=== PATIENT | female | born 1985 | race Caucasian/White ===

== ENCOUNTER 2016-08-20 04:24 | Inpatient (IN) | payer BC, OTHER ==
[2016-08-20 04:43] VITALS: BMI 28.3
[2016-08-20] MEDS ORDERED: SODIUM CHLORIDE 0.9% 1000 ML INFUS.BAG IV ONE (04:45)
[2016-08-20] MEDS ORDERED: ONDANSETRON 4 MG/2 ML VIAL IVPUSH ONE (04:46)
--- NOTE | 2016-08-20 04:47 | PDOC ---
*Physical Exam - Vital Signs Last Vital Signs Temp Pulse Resp BP Pulse Ox 98.9 F 97 H 20 160/108 100 08/20/16 04:39 08/20/16 04:39 08/20/16 04:39 08/20/16 04:39 08/20/16 04:39 ED Treatment Course - LABORATORY CBC & Chemistry Diagram: 08/20/16 04:52 08/20/16 06:09 Medical Decision Making - Medical Decision Making 08/20/16 04:46 agree with care from ERIKA Martinez *DC/Admit/Observation/Transfer Diagnosis at time of Disposition: Cholecystitis, Elevated liver enzymes - Discharge Dispostion Condition at time of disposition: Stable
[2016-08-20] MEDS ORDERED: FAMOTIDINE 20 MG/50 ML IVPB 50 ML IVPB ONE ×2 (04:56→04:59)
--- NOTE | 2016-08-20 05:09 | PDOC ---
History of Present Illness - General Chief Complaint: Pain Stated Complaint: ABD PAIN, SOB Time Seen by Provider: 08/20/16 04:34 - History of Present Illness Initial Comments: 08/20/16 05:00 CHIEF COMPLAINT: abdominal pain, chest tightness HISTORY OF PRESENT ILLNESS: 30 yo F with hx of asthma and HTN presents to ED with abdominal pain x 2 hours. Patient states she "was fine at midnight" but around 2:30 in the morning she had sudden onset sharp abdominal pain and began vomiting persistently. The pain is 10/10 and only relieved when she pushes down on her stomach. She denies any fever but states that she "feels really hot and sweaty." She ate a medium-cooked steak and potatoes tonight. She denies any urinary symptoms, diarrhea or rectal bleeding and states she had a normal bowel movement yesterday. Her LMP was . 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 Of note, patient states she was prescribed Diovan in the past for her HTN but has not been taking it recently. 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 Current smoker, 1/2 pack daily. Occasion alcohol use, "every once in a while." Denies illicit drug. SURGICAL HISTORY: Denies ALLERGIES: ibuprofen (fast heartbeat) REVIEW OF SYSTEMS General/Constitutional: "I feel really hot, and my whole body hurts like I have the flu." Denies weakness, weight change. HEENT: Denies change in vision. Denies ear pain or discharge. Denies sore throat. Cardiovascular: Denies chest pain or shortness of breath. Respiratory: Denies cough, wheezing, or hemoptysis. Gastrointestinal: Nausea, multiple episodes of vomiting in past 2 hours. Denies diarrhea or constipation. Denies rectal bleeding. Genitourinary: Denies dysuria, frequency, or change in urination. Musculoskeletal: Denies joint or muscle swelling or pain. Denies neck or back pain. Skin and breasts: Denies rash or easy bruising. Neurologic: Denies headache, vertigo, loss of consciousness, or loss of sensation. PHYSICAL EXAM General Appearance: Well-appearing, appropriately dressed. No apparent distress , no intoxication. HEENT: EOMI, PERRLA, normal ENT inspection, normal voice, TMs normal, pharynx normal. No conjunctival pallor. No photophobia, scleral icterus. Respiratory/Chest: Lungs CTAB. Cardiovascular: RRR. S1, S2. Gastrointestinal/Abdominal: Tenderness to epigastric region. No tenderness to McBurney's point. No tenderness to lower abdomen. Normal bowel sounds. Abdomen soft, non-distended. No tenderness or rebound tenderness. No organomegaly, pulsatile mass, guarding, hernia, hepatomegaly, splenomegaly. Musculoskeletal/Extremities: Normal inspection. FROM of all extremities, normal capillary refill. Pelvis Stable. No CVA tenderness. No tenderness to extremities, pedal edema, swelling, erythema or deformity. Integumentary: Appropriate color, dry, warm. No cyanosis, erythema, jaundice or rash Neurologic: nursery hand II-XII intact. Fully oriented, alert. Appropriate mood/affect. Motor strength 5/5. No appreciable EOM palsy, facial droop or sensory deficit. Past History - Past Medical History Allergies/Adverse Reactions: Allergies Allergy/AdvReac Type Severity Reaction Status Date / Time famotidine [From Pepcid] Allergy Rash Verified 08/20/16 12:00 ibuprofen Allergy Verified 08/20/16 04:57 ondansetron HCl Allergy Rash Verified 08/20/16 12:00 [From Zofran (as hydrochloride)] Home Medications: Ambulatory Orders Albuterol Sulfate Inhaler - [Ventolin Hfa Inhaler -] 1 - 2 inh PO QID PRN Cetirizine HCl [Zyrtec -] 10 mg PO DAILY 08/20/16 - Psycho/Social/Smoking Cessation Hx Suicidal Ideation: No Smoking History: Unknown if ever smoked Have you smoked in the past 12 months: No Information on smoking cessation initiated: No Hx Alcohol Use: No Drug/Substance Use Hx: No *Physical Exam - Vital Signs Last Vital Signs Temp Pulse Resp BP Pulse Ox 98.9 F 97 H 20 160/108 100 08/20/16 04:39 08/20/16 04:39 08/20/16 04:39 08/20/16 04:53 08/20/16 04:39 ED Treatment Course - LABORATORY CBC & Chemistry Diagram: 08/20/16 04:52 08/20/16 06:09 - RADIOLOGY Radiology Studies Ordered: Category Date Time Status CHEST X-RAY PORTABLE* [RAD] Stat Radiology 08/20/16 04:40 Ordered - Medications Given in the ED: ED Medications Discontinued Medications Generic Name Dose Route Start Last Admin Trade Name Mike PRN Reason Stop Dose Admin Ondansetron HCl 4 mg 08/20/16 04:46 08/20/16 04:54 Zofran Injection IVPUSH 08/20/16 04:47 4 mg ONCE ONE Administration Sodium Chloride 1,000 ml 08/20/16 04:45 08/20/16 04:53 Normal Saline - IV 08/20/16 04:46 1,000 ml ONCE ONE Administration Medical Decision Making - Medical Decision Making 08/20/16 05:44 30 yo F with hx of asthma and HTN presents to ED with abdominal pain x 2 hours. -CBC, CMP, lipase -Zofran 4 mg IV -Pepcid 20 mg IVPB Patient vomited once after administration of Zofran; continues to c/o of severe epigastric pain. -Abdomen US when ultrasound arrives in AM, r/o vijaya. -Will have patient start drinking contrast for abdomen and pelvis CT w/ contrast to r/o intraabdominal path if US negative Patient notes that she is itchy all over. -25mg Benadryl IVPB Labs: WBC 14.1 08/20/16 06:45 Patient continues to complain of itchiness. -50 mg Atarax po 08/20/16 06:46 Case discussed in detail with oncoming emergency provider including history, physical exam and ancillary studies. In brief, this patient is being seen in the ED for a chief complaint of: abd pain, vomiting I have completed the initial assessment interview note and have ordered the following labs: CBC, CMP, lipase, UA/UCx/UPreg I have reviewed the following results: Pending results: Abd US, CT? Please call the PCP: Dr. Dowd @ [facility] Plan for disposition as follows: pending Oncoming MEGAN Vickers has assumed care for the patient and will complete the evaluation and treatment. 08/20/16 06:56 *DC/Admit/Observation/Transfer Diagnosis at time of Disposition: Cholecystitis, Elevated liver enzymes - Discharge Dispostion Condition at time of disposition: Stable - Post Discharge Activity
[2016-08-20 05:19] LABS: BASOPHIL 0.2 % (0-2.0); EOSINOPHIL 0.4 % (0-4.5); MCH 30.7 pg (25.7-33.7); MCHC 33.3 g/dl (32.0-36.0); MEAN CELL VOLUME 92.1 fl (80-96); MEAN PLT VOLUME 8.3 fl (7.5-11.1); NEUTROPHILS 85.1 % (42.8-82.8); PLATELET COUNT 181 K/MM3 (134-434); RDW 13.6 % (11.6-15.6); WHITE BLOOD COUNT 14.4 K/mm3 (4.0-10.0)
[2016-08-20] MEDS ORDERED: hydrOXYzine HCL 10 MG TABLET PO ONE (06:40)
[2016-08-20] MEDS ORDERED: hydrOXYzine HCL 100 MG/2 ML VIAL IM ONE (06:40)
[2016-08-20] MEDS ORDERED: hydrOXYzine HCL 25 MG TABLET (FP) PO ONE ×2 (06:45→06:50)
[2016-08-20 07:03] LABS: ALBUMIN 3.6 g/dl (3.4-5.0); ANION GAP 11 (8-16); BILIRUBIN,TOTAL 1.4 mg/dL (0.2-1.0); CALCIUM 7.9 mg/dL (8.5-10.1); CO2 23 mmol/L (21-32); CREATININE 0.7 mg/dL (0.55-1.02); GLUCOSE,RANDOM 91 mg/dL (74-106); TOT PROT 6.9 g/dl (6.4-8.2)
[2016-08-20 07:08] LABS: ALK PHOS 110 U/L (45-117)
[2016-08-20 07:18] LABS: SGOT/AST 1121 U/L (15-37); SGPT/ALT 443 U/L (12-78)
--- NOTE | 2016-08-20 07:43 | PDOC ---
ED Treatment Course - LABORATORY CBC & Chemistry Diagram: 08/20/16 04:52 08/20/16 06:09 - ADDITIONAL ORDERS Additional order review: Laboratory Results 08/20/16 08/20/16 08/20/16 06:09 04:52 04:42 Sodium 138 Cancelled Potassium 3.3 L Cancelled Chloride 104 Cancelled Carbon Dioxide 23 Cancelled Anion Gap 11 Cancelled BUN 14 Cancelled Creatinine 0.7 Cancelled Creat Clearance w eGFR > 60 Cancelled Random Glucose 91 Cancelled Calcium 7.9 L Cancelled Total Bilirubin 1.4 H Cancelled AST 1121 H Cancelled ALT 443 H Cancelled Alkaline Phosphatase 110 Cancelled Total Protein 6.9 Cancelled Albumin 3.6 Cancelled Lipase Cancelled Serum , Qual Negative 08/20/16 04:52 RBC 4.24 MCV 92.1 MCHC 33.3 RDW 13.6 MPV 8.3 Neutrophils % 85.1 H Lymphocytes % 10.8 Monocytes % 3.5 L Eosinophils % 0.4 Basophils % 0.2 - Medications Given in the ED: ED Medications Discontinued Medications Generic Name Dose Route Start Last Admin Trade Name Freq PRN Reason Stop Dose Admin Diphenhydramine HCl 25 mg 08/20/16 05:48 08/20/16 06:00 Benadryl Injection - IVPB 08/20/16 05:49 25 mg ONCE ONE Administration Hydroxyzine HCl 10 mg 08/20/16 06:40 08/20/16 06:52 Atarax - PO 08/20/16 06:41 Not Given ONCE ONE Hydroxyzine HCl 50 mg 08/20/16 06:40 08/20/16 06:53 Vistaril Injection - IM 08/20/16 06:41 Not Given ONCE ONE Hydroxyzine HCl 50 mg 08/20/16 06:45 08/20/16 06:51 Atarax - PO 08/20/16 06:46 50 mg ONCE ONE Administration Famotidine/Sodium Chloride 50 mls @ 100 mls/hr 08/20/16 04:56 08/20/16 05:01 Pepcid 20 Mg Premixed Ivpb - IVPB 08/20/16 05:25 100 mls/hr ONCE ONE Administration Ondansetron HCl 4 mg 08/20/16 04:46 08/20/16 04:54 Zofran Injection IVPUSH 08/20/16 04:47 4 mg ONCE ONE Administration Sodium Chloride 1,000 ml 08/20/16 04:45 08/20/16 04:53 Normal Saline - IV 08/20/16 04:46 1,000 ml ONCE ONE Administration Progress Note - Progress Note Progress Note: I have received report from ERIKA Martinez regarding this patient. Pt's initial chief complaint: abdominal pain and chest tightness Pt's work up completed prior to sign out: labs, UA, CXR Pt treatment given from prior staff: IV fluids/zofran/pepcid/benadryl/ hydroxizine Pt plan to be completed: Awaiting gallbladder ultrasound and CT scan of abd/ pelvis Dispo: Pending Medical Decision Making - Medical Decision Making A/P: 30 y/o afebrile female with epigastric abdominal pain since 2:30am. The patient was evaluated by ERIKA Martinez. She has elevated liver enzymes. Plan is as follows: 1. gallbladder ultrasound 2. CT scan abd/pelvis Gallbladder Ultrasound IMPRESSION: No evidence of cholelithiasis or cholecystitis. CT scan abd/pelvis IMPRESSION: The gallbladder contains bile without obvious stones. However, there is either wall thickening or fluid around portions of the gallbladder raising the question of cholecystitis. Correlate HIDA scan. Patient's liver enzymes are very elevated, along with elevated WBC count and left shift. Spoke with Dr. Garcia who accepts admission. Informed the patient of the plan. *DC/Admit/Observation/Transfer Diagnosis at time of Disposition: Cholecystitis, Elevated liver enzymes - Discharge Dispostion Condition at time of disposition: Stable Admit: Yes - Referrals - Patient Instructions - Post Discharge Activity
--- NOTE | 2016-08-20 10:22 | EKG ---
Test Reason : Blood Pressure : / mmHG Vent. Rate : 094 BPM Atrial Rate : 094 BPM P-R Int : 132 ms QRS Dur : 084 ms QT Int : 378 ms P-R-T Axes : 050 033 023 degrees QTc Int : 472 ms NORMAL SINUS RHYTHM NORMAL ECG NO PREVIOUS ECGS AVAILABLE Confirmed by ADILENE PHAM, BJORN ([id number]) on 08/20/2016 10:22:23 AM Referred By: Confirmed By:BJORN HEAD MD
--- NOTE | 2016-08-20 11:46 | HP ---
PCP: CHIEF COMPLAINT: Abdominal pain HISTORY OF PRESENT ILLNESS: This is a 30-year-old woman who presented to the ER this morning complaining of abdominal pain, nausea and vomiting since 2:30 am. She felt very warm but denies fever, chills. The pain was initially in the epigastrium but now is mostly in the RUQ. She denies history of abdominal pain, GERD, heartburn, PUD. She denies hematemesis, melena, rectal bleeding, weight loss. She admits to drinking "a lot" this past weekend. PAST MEDICAL HISTORY Asthma PAST SURGICAL HISTORY None Allergies ibuprofen Allergy (Verified 08/20/16 04:57) HOME MEDICATIONS 3 Medication Instructions Recorded Albuterol Sulfate Inhaler - 1 - 2 inh PO QID PRN 08/20/16 [Ventolin Hfa Inhaler -] Cetirizine HCl [Zyrtec -] 10 mg PO DAILY 08/20/16 Social History: Smoking: Smokes 1/2 PPD Alcohol: Social Drugs: Denies Recent Travel: No Family History: Unremarkable REVIEW OF SYSTEMS CONSTITUTIONAL: Absent: fever, chills, diaphoresis, generalized weakness, malaise, loss of appetite, weight change HEENT: Absent: rhinorrhea, nasal congestion, throat pain, throat swelling, difficulty swallowing, mouth swelling, ear pain, eye pain, visual changes CARDIOVASCULAR: Absent: chest pain, syncope, palpitations, lightheadedness, peripheral edema RESPIRATORY: Absent: cough, shortness of breath, dyspnea with exertion, orthopnea, wheezing, stridor, hemoptysis GASTROINTESTINAL: Present: abdominal pain, nausea, vomiting. Absent: abdominal distension, diarrhea, constipation, melena, hematochezia GENITOURINARY: Absent: dysuria, frequency, urgency, hesitancy, hematuria, flank pain MUSCULOSKELETAL: Absent: myalgia, arthralgia, joint swelling, back pain, neck pain SKIN: Absent: rash, itching, pallor HEMATOLOGIC/IMMUNOLOGIC: Absent: easy bleeding, easy bruising, lymphadenopathy, frequent infections ENDOCRINE: Absent: unexplained weight gain, unexplained weight loss, heat intolerance, cold intolerance NEUROLOGIC: Absent: headache, focal weakness, paresthesias, dizziness, unsteady gait, seizure, mental status changes, bladder or bowel incontinence PSYCHIATRIC: Absent: anxiety, depression, suicidal or homicidal ideation, hallucinations. PHYSICAL EXAMINATION Vital Signs - 24 hr 03/08/20/16 08/20/16 04:39 04:53 06:34 Temperature 98.9 F Pulse Rate 97 H Pulse Rate [ 76 Radial] Respiratory 20 18 Rate Blood Pressure 160/108 160/108 Blood Pressure 128/86 [Right Arm] O2 Sat by Pulse 100 100 Oximetry (%) 08/20/16 09:28 Temperature Pulse Rate Pulse Rate [ 70 Radial] Respiratory 19 Rate Blood Pressure Blood Pressure 131/77 [Right Arm] O2 Sat by Pulse 97 Oximetry (%) GENERAL: Awake, alert, and fully oriented, in mild distress. HEAD: Normal with no signs of trauma. EYES: Pupils equal, round and reactive to light, extraocular movements intact, sclerae anicteric, conjunctivae clear. EARS, NOSE, THROAT: Ears normal, nares patent, oropharynx clear without exudates. Moist mucous membranes. NECK: Normal range of motion, supple without lymphadenopathy, JVD, or masses. LUNGS: Breath sounds equal, clear to auscultation bilaterally. No wheezes, and no crackles. No accessory muscle use. HEART: Regular rate and rhythm, normal S1 and S2 without murmur, rub or gallop. ABDOMEN: Soft, (+) epigastric and RUQ tenderness, not distended, normoactive bowel sounds, no guarding, no rebound, no masses. No hepatomegaly or splenomegaly. MUSCULOSKELETAL: Normal range of motion at all joints. No bony deformities or tenderness. No CVA tenderness. UPPER EXTREMITIES: 2+ pulses, warm, well-perfused. No cyanosis. No clubbing. No peripheral edema. LOWER EXTREMITIES: 2+ pulses, warm, well-perfused. No calf tenderness. No peripheral edema. NEUROLOGICAL: Cranial nerves II-XII intact. Normal speech. Gait not observed. PSYCHIATRIC: Cooperative. Good eye contact. Appropriate mood and affect. SKIN: Warm, dry, normal turgor, no rashes or lesions noted, normal capillary refill. Laboratory Results - last 24 hr 08/20/16 08/20/16 08/20/16 04:42 04:52 04:52 WBC 14.4 H RBC 4.24 Hgb 13.0 Hct 39.0 MCV 92.1 MCHC 33.3 RDW 13.6 Plt Count 181 MPV 8.3 Neutrophils % 85.1 H Lymphocytes % 10.8 Monocytes % 3.5 L Eosinophils % 0.4 Basophils % 0.2 Sodium Cancelled Potassium Cancelled Chloride Cancelled Carbon Dioxide Cancelled Anion Gap Cancelled BUN Cancelled Creatinine Cancelled Creat Clearance w eGFR Cancelled Random Glucose Cancelled Calcium Cancelled Total Bilirubin Cancelled AST Cancelled ALT Cancelled Alkaline Phosphatase Cancelled Total Protein Cancelled Albumin Cancelled Lipase Cancelled Serum , Qual Negative 08/20/16 06:09 WBC RBC Hgb Hct MCV MCHC RDW Plt Count MPV Neutrophils % Lymphocytes % Monocytes % Eosinophils % Basophils % Sodium 138 Potassium 3.3 L Chloride 104 Carbon Dioxide 23 Anion Gap 11 BUN 14 Creatinine 0.7 Creat Clearance w eGFR > 60 Random Glucose 91 Calcium 7.9 L Total Bilirubin 1.4 H AST 1121 H ALT 443 H Alkaline Phosphatase 110 Total Protein 6.9 Albumin 3.6 Lipase Serum , Qual Chest x-ray: No acute process. US abdomen: Slightly contracted gallbladder without stones or evidence of acute cholecystitis. Diffuse fatty infiltration of liver with possible left lobe mass. CT abdomen/pelvis: Bile and no obvious stones in gallbladder. Wall thickening vs fluid around gallbladder. Prominent right ovary. ASSESSMENT/PLAN: This is a 30-year-old woman with a history of asthma who comes to the ER with epigastric and RUQ abdominal pain with nausea and vomiting. She was afebrile and was found to have WBC 14.4, potassium 3.3, AST 1121, ALT 443. US and CT show abnormal gallbladder. 1. Possible acute cholecystitis - HIDA scan - NPO - IV fluid - Check amylase and lipase - Start Rocephin, Flagyl - Morphine as needed for pain - Reglan as needed for nausea - GI and surgery consults 2. Hepatic transaminitis - Likely secondary to binge alcohol drinking and biliary disease - Monitor LFTs - GI consult 3. Asthma - Stable - Continue Albuterol as needed Problem List - Problem (1) Abdominal pain Code(s): R10.9 - UNSPECIFIED ABDOMINAL PAIN (2) Alcohol use Code(s): Z78.9 - OTHER SPECIFIED HEALTH STATUS (3) Nausea and vomiting Code(s): R11.2 - NAUSEA WITH VOMITING, UNSPECIFIED (4) Tobacco use Code(s): Z72.0 - TOBACCO USE (5) Asthma Code(s): J45.909 - UNSPECIFIED ASTHMA, UNCOMPLICATED Visit type - Emergency Visit Emergency Visit: Yes ED Registration Date: 08/20/16 Care time: The patient presented to the Emergency Department on the above date and was hospitalized for further evaluation of their emergent condition. - New Patient This patient is new to me today: Yes Date on this admission: 08/21/16 - Critical Care Critical Care patient: No
[2016-08-20] MEDS ORDERED: ALBUTEROL SO4 6.7 GM HFA INHALER IH PRN (11:47)
[2016-08-20] MEDS ORDERED: ONDANSETRON 4 MG/2 ML VIAL IVPB PRN (11:48)
[2016-08-20] MEDS ORDERED: morphine CARPU-JECT 2 MG/1 ML DISP.SYRIN IVPUSH PRN (11:48)
[2016-08-20] MEDS ORDERED: ACETAMINOPHEN 325 MG TABLET (FP) PO PRN (11:48)
[2016-08-20] MEDS ORDERED: METOCLOPRAMIDE HCL INJECTION 10 MG/2 ML VIAL IVPUSH PRN (12:00)
[2016-08-20] MEDS: SODIUM CHLORIDE 0.9%/KCL 1,000 ML IV SCH (12:30)
[2016-08-20 13:09] LABS: URINE APPEARANCE CLEAR; URINE BILIRUBIN NEGATIVE (NEGATIVE); URINE BLOOD NEGATIVE (NEGATIVE); URINE COLOR LTYELLOW; URINE GLUCOSE (UA) NEGATIVE (NEGATIVE); URINE KETONE NEGATIVE (NEGATIVE); URINE LEUK ESTERASE NEGATIVE (NEGATIVE); URINE NITRITE NEGATIVE (NEGATIVE); URINE PROTEIN NEGATIVE (NEGATIVE); URINE UROBILINOGEN NEGATIVE E.U./dl (0.2-1.0)
[2016-08-20] MEDS ORDERED: CEFTRIAXONE 50 ML ONE (13:24)
[2016-08-20] MEDS: CEFTRIAXONE 50 ML IVPB SCH (13:24)
[2016-08-20] MEDS: METRONIDAZOLE 500 MG PREMIXED 100 ML IVPB SCH ×2 (14:00→18:10)
[2016-08-20 14:07] LABS: AMYLASE 53 U/L (25-115)
--- NOTE | 2016-08-20 18:25 | CON.GI ---
Consult Consult Specialty:: GI Referred by:: Hospitalist Reason for Consultation:: Abdominal pain, abnormal LFTs - History of Present Illness Chief Complaint: "I started having body aches and abdominal pain at 2:30 in the morning" History of Present Illness: 30F admitted through [facility] early this AM for evaluation of abdominal pain. She states that she was in her usual state of health up until 2:30 in the morning. She was awoken by diffuse body aches, mid upper abdominal pain associated with nasuea and vomiting. She felt clammy and was diaphoretic, the pain being intense enough to make her double over. She has never experienced simiar episodes in the past and had last eaten a steak dinner at around 8pm the evening before. She also described increased alcohol intake over this past weekend however non the evening her pain occurred. In the ER, work-up included lab work and abdominal imaging. Triage vitals revealed her to be afebrile with P: 97 and BP: 160/108. She had WBC of 14.4 and AST: 1121 ALT 443 TB: 1.4. Abdominal US revealed a contracted GB without evidence of cholelithiasis or cholecystitis. Her bile ducts were not dilated. A CT scan of the abdomen and pelvis with PO/IV contrast revealed a thick walled GB with pericholecystic fluid (HIDA was recommended) and a prominent right ovary. HIDA scan was performed and failed to reveal cystic duct obstruction. There was a delay in tracer activity in the small bowel. the radiologist questioned if this could be secondary to opiate analgesia (however there did not appear to be any given in the ER). She denies recent travel, sick contacts, recent medication use, rash or known family history of liver disease. She was seen by my colleague Dr. Mckeon in 2013 for evaluation of constipation and rectal bleeding. Blood work from 2012 revealed AST: 22 ALT: 42 ALP: 56 TB: 0.4 She has been told of elevated blood pressure in the past, was started on a blood pressure medication but has not been taking it for a couple of months now. 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 : [facility] History of Recent Travel: No Home Medications - Allergies Allergies/Adverse Reactions: Allergies Allergy/AdvReac Type Severity Reaction Status Date / Time famotidine [From Pepcid] Allergy Rash Verified 08/20/16 12:00 ibuprofen Allergy Verified 08/20/16 04:57 ondansetron HCl Allergy Rash Verified 08/20/16 12:00 [From Zofran (as hydrochloride)] - Home Medications Home Medications: Ambulatory Orders Albuterol Sulfate Inhaler - [Ventolin Hfa Inhaler -] 1 - 2 inh PO QID PRN Cetirizine HCl [Zyrtec -] 10 mg PO DAILY 08/20/16 Family Disease History - Family Disease History Family Disease History: Other: Mother (uterine polyp) Other Family History: grandparents with "gallbladder problems" Review of Systems - Review of Systems Constitutional: reports: Chills Cardiovascular: denies: Chest Pain Respiratory: denies: SOB Gastrointestinal: reports: Abdominal Pain, Nausea. denies: Constipation, Diarrhea Musculoskeletal: reports: Muscle Pain Physical Exam-GI Vital Signs: Vital Signs Temperature 98.9 F 08/20/16 13:05 Pulse Rate 55 L 08/20/16 13:02 Respiratory Rate 18 08/20/16 13:02 Blood Pressure 124/84 08/20/16 13:02 O2 Sat by Pulse Oximetry (%) 100 08/20/16 13:02 Constitutional: Yes: Calm Eyes: No: Sclera Icterus Cardiovascular: Yes: Regular Rate and Rhythm. No: Murmur Respiratory: Yes: CTA Bilaterally Gastrointestinal Inspection: No: Scars ...Auscultate: Yes: Normoactive Bowel Sounds ...Palpate: Yes: Tenderness (TTP RUQ, + Ramon's sign). No: Hepatomegaly, Splenomegaly ...Percussion: No: Tympanitic Edema: No Neurological: Yes: Alert, Oriented Labs: CBC, BMP 08/20/16 04:52 08/20/16 06:09 Hepatic Panel Total Bilirubin 1.4 mg/dL (0.2-1.0) H 08/20/16 06:09 AST 1121 U/L (15-37) H 08/20/16 06:09 ALT 443 U/L (12-78) H 08/20/16 06:09 Alkaline Phosphatase 110 U/L (45-117) 08/20/16 06:09 Albumin 3.6 g/dl (3.4-5.0) 08/20/16 06:09 Imaging - Results Cat Scan: Report Reviewed, Image Reviewed Ultrasound: Report Reviewed Problem List - Problems (1) Elevated liver enzymes Assessment/Plan: Biliary pathology such as acute cholecystitis would still need to be considered higher in differential clinically despite HIDA scan (? acalculous cholecystitis , small stones) vs. passed CBD stone. There was no biliary ductal dilatation noted on US/CT however the HIDA scan revealed a delay in tracer activity in the small bowel. This can be seen after opiate analgesia however she didn't receive any. As part of continued evaluation and to exclude alternate pathology: Ordered triple phase MRI/MRCP of the abdomen with and without contrast to further assess CBD and exclude primary liver pathology/vascular pathology Ordered hepatitis A/B/C serologies, CPK Continue IV abx for now Clear liquids for now Surgery on the case Code(s): R74.8 - ABNORMAL LEVELS OF OTHER SERUM ENZYMES
[2016-08-20 20:14] LABS: ALBUMIN 3.5 g/dl (3.4-5.0); BILIRUBIN,DIRECT 0.4 mg/dL (0.0-0.2)
[2016-08-20 20:16] LABS: TOT PROT 7.1 g/dl (6.4-8.2)
[2016-08-21] MEDS: SODIUM CHLORIDE 0.9%/KCL 1,000 ML IV SCH (02:44)
[2016-08-21] MEDS: METRONIDAZOLE 500 MG PREMIXED 100 ML IVPB SCH ×2 (02:44→09:24)
--- NOTE | 2016-08-21 07:39 | CONSULT ---
Consult Consult Specialty:: general surgery - History of Present Illness Chief Complaint: ruq pain - History Source History Provided By: Patient Limitations to Obtaining History: No Limitations - Past Medical History Pulmonary: Yes: Asthma Musculoskeletal: Yes: Chronic low back pain (L5 Disc herniation) - Past Surgical History Past Surgical History: Yes: None - Alcohol/Substance Use Hx Alcohol Use: No - Smoking History Smoking history: Unknown if ever smoked Have you smoked in the past 12 months: No Aproximately how many cigarettes per day: 10 - Social History Usual Living Arrangement: With Parent ADL: Independent 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 History of Recent Travel: No Home Medications - Allergies Allergies/Adverse Reactions: Allergies Allergy/AdvReac Type Severity Reaction Status Date / Time famotidine [From Pepcid] Allergy Rash Verified 08/20/16 12:00 ibuprofen Allergy Verified 08/20/16 04:57 ondansetron HCl Allergy Rash Verified 08/20/16 12:00 [From Zofran (as hydrochloride)] - Home Medications Home Medications: Ambulatory Orders Albuterol Sulfate Inhaler - [Ventolin Hfa Inhaler -] 1 - 2 inh PO QID PRN Cetirizine HCl [Zyrtec -] 10 mg PO DAILY 08/20/16 Family Disease History - Family Disease History Family Disease History: Other: Mother (uterine polyp) Other Family History: grandparents with "gallbladder problems" Review of Systems - Review of Systems Constitutional: denies: Chills, Fever Eyes: denies: Blind Spots, Blurred Vision HENT: denies: Difficult Swallowing, Ear Discharge Neck: denies: Decreased ROM, Lumps Cardiovascular: denies: Chest Pain, Edema Respiratory: denies: Cough, Exercise Intolerance Gastrointestinal: reports: Abdominal Pain, Nausea, Vomiting Genitourinary: denies: Discharge, Dysuria Breasts: denies: Pain, Skin Changes Musculoskeletal: denies: Back Pain, Crepitus Integumentary: denies: Blister, Bruising Neurological: denies: Change in LOC, Change in Speech Endocrine: denies: Excessive Sweating, Flushing Hematology/Lymphatic: denies: Easily Bruised, Excessive Bleeding Psychiatric: denies: Altered Sleep Pattern, Anxiety Physical Exam Vital Signs: Vital Signs Temperature 97.7 F 08/21/16 06:07 Pulse Rate 71 08/21/16 06:07 Respiratory Rate 17 08/21/16 06:07 Blood Pressure 143/72 08/21/16 06:07 O2 Sat by Pulse Oximetry (%) 99 08/20/16 18:34 Constitutional: Yes: No Distress, Calm Eyes: Yes: Conjunctiva Clear, EOM Intact HENT: Yes: Atraumatic, Normocephalic Neck: Yes: Supple Cardiovascular: Yes: Regular Rate and Rhythm Respiratory: Yes: Regular. No: Accessory Muscle Use Gastrointestinal: Yes: Soft, Tenderness (min mild tender RUQ, no guarding). No : Distention ...Rectal Exam: Yes: Deferred Renal/: No: CVA Tenderness - Left, CVA Tenderness - Right Musculoskeletal: No: Joint Stiffness, Joint Swelling Extremities: No: Calf Tenderness, Erythema Integumentary: No: Erythema, Rash Neurological: Yes: Alert, Oriented Psychiatric: Yes: Alert, Oriented Imaging - Results Cat Scan: Report Reviewed Ultrasound: Report Reviewed Other: Report Reviewed, Other (hida reviewed) Problem List - Problems (1) Abdominal pain Assessment/Plan: pt with ruq pain. U/S shows no stones or wall thickening or pericholecystic fluid CT shows no stones, possible fluid or wall thickening HIDA shows no obstruction of gallbladder (fills right away) and delayed filling of small bowel low suspicion for biliary disease but agree with MRCP. check hepatatis panel ultimately decision on whether or not to offer surgery will depend on patients clinical status cont abx Code(s): R10.9 - UNSPECIFIED ABDOMINAL PAIN (2) Elevated liver enzymes Code(s): R74.8 - ABNORMAL LEVELS OF OTHER SERUM ENZYMES
[2016-08-21 07:40] LABS: BASOPHIL 0.4 % (0-2.0); EOSINOPHIL 5.5 % (0-4.5); MCH 31.5 pg (25.7-33.7); MCHC 34.4 g/dl (32.0-36.0); MEAN CELL VOLUME 91.6 fl (80-96); PLATELET COUNT 171 K/MM3 (134-434); RDW 13.9 % (11.6-15.6)
[2016-08-21 07:51] LABS: INR 1.21 (0.82-1.09); PROTHROMBIN TIME (PATIENT) 13.4 SEC (9.98-11.88)
[2016-08-21 08:52] LABS: ALBUMIN 3.3 g/dl (3.4-5.0); BILIRUBIN,DIRECT 0.2 mg/dL (0.0-0.2)
[2016-08-21 08:55] LABS: BILIRUBIN,TOTAL 0.6 mg/dL (0.2-1.0); TOT PROT 6.5 g/dl (6.4-8.2)
[2016-08-21 09:17] LABS: CALCIUM 8.2 mg/dL (8.5-10.1); CREATININE 0.6 mg/dL (0.55-1.02)
[2016-08-21] MEDS: CEFTRIAXONE 50 ML IVPB SCH (09:24)
[2016-08-21] MEDS: LORATADINE 10 MG TABLET PO SCH ×2 (09:24→09:27)
--- NOTE | 2016-08-21 11:05 | PN ---
Physical Exam: SUBJECTIVE: Patient seen and examined Patient resting in bed NAD. States that she feels much better and that her abd pain resolved. States that n/v resolved. she developed mild brown diarrhea thsi morning (1 episode.) Denies f/c, pruritus, h/a, chest pain, sob, dizziness, constipation, dysuria. OBJECTIVE: Vital Signs Period Temp Pulse Resp BP Sys/Campbell Pulse Ox Last 24 Hr 97.6 F-98.9 F 55-71 17-20 124-146/72-89 98-100 GENERAL: The patient is awake, alert, and fully oriented, in no acute distress. HEAD: Normal with no signs of trauma. EYES: PERRL, extraocular movements intact, sclera anicteric, conjunctiva clear. No ptosis. ENT: moist mucous membranes, mild sublingual jaundice. NECK: supple. LUNGS: Breath sounds equal, clear to auscultation bilaterally, no wheezes HEART: Regular rate and rhythm, S1, S2 ABDOMEN: Soft, mildly tender RUQ, [place] negative, nondistended, normoactive bowel sounds, no guarding, no rebound, no hepatosplenomegaly, no masses. EXTREMITIES: 2+ pulses, warm, well-perfused, no edema. NEUROLOGICAL: Cranial nerves II through XII grossly intact. Normal speech, gait not observed. PSYCH: Normal mood, normal affect. SKIN: Warm, dry Laboratory Results - last 24 hr 08/20/16 08/21/16 08/21/16 11:28 06:00 06:00 WBC 5.0 D RBC 3.89 Hgb 12.3 Hct 35.7 MCV 91.6 MCHC 34.4 RDW 13.9 Plt Count 171 MPV 8.0 Neutrophils % 32.0 L D Lymphocytes % 53.9 H D Monocytes % 8.2 D Eosinophils % 5.5 H D Basophils % 0.4 INR 1.21 H Sodium Potassium Chloride Carbon Dioxide Anion Gap BUN Creatinine Random Glucose Calcium Total Bilirubin Direct Bilirubin AST ALT Alkaline Phosphatase Creatine Kinase Total Protein Albumin Urine Color Ltyellow Urine Appearance Clear Urine pH 6.0 Ur Specific [place] <= 1.005 Urine Protein Negative Urine Glucose (UA) Negative Urine Ketones Negative Urine Blood Negative Urine Nitrite Negative Urine Bilirubin Negative Urine Urobilinogen Negative Ur Leukocyte Esterase Negative 08/21/16 08/21/16 08/21/16 08:00 08:00 08:00 WBC RBC Hgb Hct MCV MCHC RDW Plt Count MPV Neutrophils % Lymphocytes % Monocytes % Eosinophils % Basophils % INR Sodium 140 Potassium 4.2 D Chloride 106 Carbon Dioxide 26 Anion Gap 8 BUN 6 L D Creatinine 0.6 Random Glucose 82 Calcium 8.2 L Total Bilirubin 0.6 D Direct Bilirubin 0.2 D AST 235 H D ALT 406 H D Alkaline Phosphatase 90 Creatine Kinase 68 Total Protein 6.5 Albumin 3.3 L Urine Color Urine Appearance Urine pH Ur Specific [place] Urine Protein Urine Glucose (UA) Urine Ketones Urine Blood Urine Nitrite Urine Bilirubin Urine Urobilinogen Ur Leukocyte Esterase Active Medications Generic Name Dose Route Start Last Admin Trade Name Freq PRN Reason Stop Dose Admin Albuterol Sulfate 2 puff 08/20/16 11:47 Ventolin Hfa Inhaler - IH Q4H PRN WHEEZING Ceftriaxone Sodium 50 mls @ 100 mls/hr 08/20/16 12:00 08/21/16 09:24 Rocephin 1gm Ivpb (Pre-Docked) IVPB 100 mls/hr DAILY MISA Administration Metronidazole 100 mls @ 100 mls/hr 08/20/16 14:00 08/21/16 09:24 Flagyl 500mg Premixed Ivpb - IVPB 100 mls/hr Q8H-IV MISA Administration Potassium Chloride/Sodium Chloride 1,000 mls @ 100 mls/hr 08/20/16 12:00 02:44 Ns+20 Meq Kcl - IV 100 mls/hr ASDIR MISA Administration Loratadine 10 mg 08/22/16 10:00 Claritin - PO DAILY MISA Morphine Sulfate 1 mg 08/20/16 11:48 Morphine Injection - IVPUSH Q4H PRN PAIN ASSESSMENT/PLAN: This is a 30 yo F with a history of asthma who comes to the ER with epigastric and RUQ abdominal pain with nausea and vomiting. She was afebrile, leukocytosis 14.4, bandemia, transaminitis, AST 1121, ALT 443. Imaging: CXR wnl EKG wnl Abd CT: abnormal GB, prominent R ovary Abd US: fatty liver, possible L lobe mass, Normal GB HIDA: thickened GB wall with surrounding fluid, patent cystic duct, ampullary spasm MRCP p/d Choledocholithiasis -likely passed stone -rapid symptomatic resolution -improved LFT's and bilirubin -ampullary spasm likely caused by passing stone irritation -Gi, Surgery consult on board -prophylactic flagyn, rocephin -tolerating clears -awaiting MRCP result Transaminitis -improving -History of recent binge drinking but unlikley the cause as the enzymes are trending down rapidly, more consistent with passed gall stone Asthma -no acute exacerbation -albuterol neb prn history of HTN -trend BP -possibly due to pain/illness at time of diagnosis -took diovan previously for 2 weeks -state BP at home is 120's/60's off meds Smoking -counseled on quitting FEN ND 20 KCL @ 100 replete hypokalemia clears PPX: early ambulation Dispo: med surge Problem List - Problems (1) Abdominal pain Code(s): R10.9 - UNSPECIFIED ABDOMINAL PAIN (2) Alcohol use Code(s): Z78.9 - OTHER SPECIFIED HEALTH STATUS (3) Cholecystitis Code(s): K81.9 - CHOLECYSTITIS, UNSPECIFIED (4) Elevated liver enzymes Code(s): R74.8 - ABNORMAL LEVELS OF OTHER SERUM ENZYMES (5) Nausea and vomiting Code(s): R11.2 - NAUSEA WITH VOMITING, UNSPECIFIED (6) Asthma Code(s): J45.909 - UNSPECIFIED ASTHMA, UNCOMPLICATED (7) Tobacco use Code(s): Z72.0 - TOBACCO USE (8) Choledocholithiasis Code(s): K80.50 - CALCULUS OF BILE DUCT W/O CHOLANGITIS OR CHOLECYST W/O OBST Visit type - Emergency Visit Emergency Visit: Yes ED Registration Date: 08/20/16 Care time: The patient presented to the Emergency Department on the above date and was hospitalized for further evaluation of their emergent condition. - New Patient This patient is new to me today: Yes Date on this admission: 08/21/16 - Critical Care Critical Care patient: No - Discharge Referral Referred to [facility] Med P.C.: No
--- NOTE | 2016-08-21 11:07 | PN ---
Progress Note, Physician Chief Complaint: no more pain History of Present Illness: pt feels fine. mom says patient still has slight discomfort in RUQ. LFTS markedly improved. MRCP done but not yet read. - Current Medication List Current Medications: Active Medications Albuterol Sulfate (Ventolin Hfa Inhaler -) 2 puff IH Q4H PRN PRN Reason: WHEEZING Ceftriaxone Sodium (Rocephin 1gm Ivpb (Pre-Docked)) 50 mls @ 100 mls/hr IVPB DAILY MISA Last Admin: 08/21/16 09:24 Dose: 100 mls/hr Metronidazole (Flagyl 500mg Premixed Ivpb -) 100 mls @ 100 mls/hr IVPB Q8H-IV MISA Last Admin: 08/21/16 09:24 Dose: 100 mls/hr Potassium Chloride/Sodium Chloride (Ns+20 Meq Kcl -) 1,000 mls @ 100 mls/hr IV ASDIR MISA Last Admin: 08/21/16 02:44 Dose: 100 mls/hr Morphine Sulfate (Morphine Injection -) 1 mg IVPUSH Q4H PRN PRN Reason: PAIN - Objective Vital Signs: Vital Signs Temperature 97.9 F 08/21/16 07:57 Pulse Rate 58 L 08/21/16 07:57 Respiratory Rate 18 08/21/16 07:57 Blood Pressure 143/81 08/21/16 07:57 O2 Sat by Pulse Oximetry (%) 98 08/21/16 09:00 Constitutional: Yes: No Distress, Calm Eyes: Yes: Conjunctiva Clear, EOM Intact HENT: Yes: Atraumatic, Normocephalic Neck: Yes: Supple, Trachea Midline Cardiovascular: Yes: Regular Rate and Rhythm Respiratory: Yes: Regular Gastrointestinal: Yes: Soft. No: Distention, Tenderness ...Rectal Exam: Yes: Deferred Genitourinary: No: CVA Tenderness - Left, CVA Tenderness - Right Musculoskeletal: No: Joint Stiffness, Joint Swelling Extremities: No: Calf Tenderness, Erythema Integumentary: No: Erythema, Rash Neurological: Yes: Alert, Oriented Psychiatric: Yes: Alert, Oriented Labs: CBC, BMP 08/21/16 06:00 08/21/16 08:00 INR, PTT INR 1.21 (0.82-1.09) H 08/21/16 06:00 Problem List - Problems (1) Abdominal pain Assessment/Plan: await MRCP results if no evidence of stone, can likely go home can adv to reg diet if +choledocholithasis, will talk to patient about clinical significance of this. Code(s): R10.9 - UNSPECIFIED ABDOMINAL PAIN (2) Elevated liver enzymes Code(s): R74.8 - ABNORMAL LEVELS OF OTHER SERUM ENZYMES
--- NOTE | 2016-08-21 13:46 | PN ---
Teaching Attending Note Name of Resident: Stacey Hall ATTENDING PHYSICIAN STATEMENT I saw and evaluated the patient. I reviewed the resident's note and discussed the case with the resident. I agree with the resident's findings and plan as documented. SUBJECTIVE: no fever or chills, her Abd pain resolved. no N/V . OBJECTIVE: NAD CV: RRR Lungs : CTAB ext : no edema Abd : soft, NT, ND , NL BS ASSESSMENT AND PLAN: 30 y/o lady with h/o HTN , not on any meds who presented with RUQ pain , and was found to have transaminitis 1- Abd pain /transaminitis: no evidence of acute cholecystitis on US or HIDA. likely she had passed a stone which caused pain and LFTS abnormalities. Now pain resolved and LFTS significantly improved MRCP pending . case was d/w Dr. Argueta, next step to follow MRCP results 2- possible liver mass in L lobe : MRI will help identify . will follow 3- HTN ; not on any meds at home . SBP was 160s at presnetation but she was in pain. now improved. will d/w her if she wants to go back o n meds Dispo : depends on MRI results and further surgical plans
[2016-08-21 14:13] VITALS: BP 151/88; PULSE 59; TEMP 98.1
--- NOTE | 2016-08-21 14:58 | DS ---
Addendum entered and electronically signed by Stacey Hall RES 08/21/16 16: 43: no acute cholecystitis diagnosis Original Note: Physical Exam: SUBJECTIVE: Patient seen and examined Patient resting in bed NAD. States that she feels much better and that her abd pain resolved. States that n/v resolved. she developed mild brown diarrhea this morning (1 episode.) tolerates regular diet. Denies f/c, pruritus, h/a, chest pain, sob, dizziness, constipation, dysuria. OBJECTIVE: Vital Signs Period Temp Pulse Resp BP Sys/Campbell Pulse Ox Last 24 Hr 97.6 F-98.1 F 58-71 17-20 138-151/72-89 98-99 PHYSICAL EXAM GENERAL: The patient is awake, alert, and fully oriented, in no acute distress. HEAD: Normal with no signs of trauma. EYES: PERRL, extraocular movements intact, sclera anicteric, conjunctiva clear. No ptosis. ENT: moist mucous membranes, mild sublingual jaundice. NECK: supple. LUNGS: Breath sounds equal, clear to auscultation bilaterally, no wheezes HEART: Regular rate and rhythm, S1, S2 ABDOMEN: Soft, mildly tender RUQ, [place] negative, nondistended, normoactive bowel sounds, no guarding, no rebound, no hepatosplenomegaly, no masses. EXTREMITIES: 2+ pulses, warm, well-perfused, no edema. NEUROLOGICAL: Cranial nerves II through XII grossly intact. Normal speech, gait not observed. PSYCH: Normal mood, normal affect. SKIN: Warm, dry LABS Laboratory Results - last 24 hr 08/21/16 08/21/16 08/21/16 06:00 06:00 08:00 WBC 5.0 D RBC 3.89 Hgb 12.3 Hct 35.7 MCV 91.6 MCHC 34.4 RDW 13.9 Plt Count 171 MPV 8.0 Neutrophils % 32.0 L D Lymphocytes % 53.9 H D Monocytes % 8.2 D Eosinophils % 5.5 H D Basophils % 0.4 INR 1.21 H Sodium 140 Potassium 4.2 D Chloride 106 Carbon Dioxide 26 Anion Gap 8 BUN 6 L D Creatinine 0.6 Random Glucose 82 Calcium 8.2 L Total Bilirubin Direct Bilirubin AST ALT Alkaline Phosphatase Creatine Kinase Total Protein Albumin 08/21/16 08/21/16 08:00 08:00 WBC RBC Hgb Hct MCV MCHC RDW Plt Count MPV Neutrophils % Lymphocytes % Monocytes % Eosinophils % Basophils % INR Sodium Potassium Chloride Carbon Dioxide Anion Gap BUN Creatinine Random Glucose Calcium Total Bilirubin 0.6 D Direct Bilirubin 0.2 D AST 235 H D ALT 406 H D Alkaline Phosphatase 90 Creatine Kinase 68 Total Protein 6.5 Albumin 3.3 L HOSPITAL COURSE: Date of Admission:08/20/16 This is a 30-year-old woman who presented to the ER this morning complaining of abdominal pain, nausea and vomiting since 2:30 am prior to admission. No fever, chills. The pain was initially in the epigastrium then moved to RUQ. On admission she was afebrile, leukocytosis 14.4, bandemia, transaminitis, AST 1121 , ALT 443. Her symptoms spontaneously resolved overnight and her transaminitis trended down significantly. She had the following imaging: CXR wnl EKG wnl Abd CT: abnormal GB, prominent R ovary Abd US: fatty liver, possible L lobe mass, Normal GB HIDA: thickened GB wall with surrounding fluid, patent cystic duct, ampullary spasm MRCP wnl Her case was reviewed by GI; Dr Aragon and Barb: Dr Ballesteros It was assessed that she had passed a gall stone. There was no further obstruction of biliary tree or gall stones seen in GB. She did not require acute invasive intervention. She was discharged home w/o abx and with Gi and Barb f/u. Date of Discharge: 08/21/16 Minutes to complete discharge: 30 (na) Discharge Summary Reason For Visit: CHOLECYSTITIS,ELEVATED LIVER ENZYME Current Active Problems Abdominal pain (Acute) Alcohol use (Acute) Cholecystitis (Acute) Choledocholithiasis (Acute) Elevated liver enzymes (Acute) Nausea and vomiting (Acute) Asthma (Chronic) Tobacco use (Chronic) Condition: Good - Instructions Diet, Activity, Other Instructions: you were in the hospital to evaluate abdominal pain. Based on our findings, we thing you had this pain because of a gall stone that has passed. At thism time we do not see any other stones in your gall bladder or your bile ducts. Even though your symptoms resolved, you are at an increased risk of forming gall stones in the future. Please follow up with Gastroenterology Dr Aragon and surgeon Dr Ballesteros within 2 weeks of discharge. you do not need any further medications for this issue. Return to hospital if symptoms recur. Referrals: Elvis Aragon DO [Staff Physician] - 2 Weeks Favio Ballesteros MD [Staff Physician] - 2 Weeks Disposition: HOME - Home Medications Comprehensive Discharge Medication List: Ambulatory Orders Albuterol Sulfate Inhaler - [Ventolin HFA Inhaler -] 1 - 2 inh PO QID PRN Cetirizine HCl [Zyrtec -] 10 mg PO DAILY 08/20/16 Problem List - Problems (1) Abdominal pain Code(s): R10.9 - UNSPECIFIED ABDOMINAL PAIN (2) Alcohol use Code(s): Z78.9 - OTHER SPECIFIED HEALTH STATUS (3) Cholecystitis Code(s): K81.9 - CHOLECYSTITIS, UNSPECIFIED (4) Elevated liver enzymes Code(s): R74.8 - ABNORMAL LEVELS OF OTHER SERUM ENZYMES (5) Nausea and vomiting Code(s): R11.2 - NAUSEA WITH VOMITING, UNSPECIFIED (6) Asthma Code(s): J45.909 - UNSPECIFIED ASTHMA, UNCOMPLICATED (7) Tobacco use Code(s): Z72.0 - TOBACCO USE (8) Choledocholithiasis Code(s): K80.50 - CALCULUS OF BILE DUCT W/O CHOLANGITIS OR CHOLECYST W/O OBST This patient is new to me today: Yes Date on this admission: 08/21/16 Emergency Visit: Yes ED Registration Date: 08/20/16 Care time: The patient presented to the Emergency Department on the above date and was hospitalized for further evaluation of their emergent condition. Critical Care patient: No - Discharge Referral Referred to [facility] Med P.C.: No
--- NOTE | 2016-08-21 17:12 | PN ---
GI Progress Note Subjective: No abdominal pain Tolerating PO Seen by Dr. Ballesteros today. Has deferred cholecystectomy at this time MRI/MRCP revealed fatty liver, normal appearing CBD, no portal vein thrombosis - Objective Vital Signs: Vital Signs Temperature 98.1 F 08/21/16 14:10 Pulse Rate 59 L 08/21/16 14:10 Respiratory Rate 18 08/21/16 07:57 Blood Pressure 151/88 08/21/16 14:10 O2 Sat by Pulse Oximetry (%) 98 08/21/16 09:00 Constitutional: Calm Cardiovascular: Yes: Regular Rate and Rhythm Respiratory: Yes: CTA Bilaterally Gastrointestinal Inspection: Yes: Other (decorative umbilical ring) ...Auscultate: Yes: Normoactive Bowel Sounds ...Palpate: No: Tenderness Edema: No Neurological: Yes: Alert, Oriented Labs: CBC, BMP 08/21/16 06:00 08/21/16 08:00 INR, PTT INR 1.21 (0.82-1.09) H 08/21/16 06:00 Laboratory Tests 08/20/16 08/21/16 08/21/16 08:35 08:00 08:00 Total Bilirubin 0.6 D Direct Bilirubin 0.2 D AST 235 H D ALT 406 H D Creatine Kinase 68 Hepatitis A Ab Total Pending Hep Bs Antigen Pending Hep Bs Antibody Pending Hep B Core Total Ab Pending Hepatitis C Antibody Pending - ....Imaging MRI: Report Reviewed Problem List - Problems (1) Elevated liver enzymes Assessment/Plan: Greatly improved and asymptomatic currently: ? passage of stone/sludge Surgery has deferred cholecystectomy at this time Advised: Low Fat diet Avoidance of alcohol / Acetaminophen Follow-up in office in 1-2 weeks for repeat LFTs / reevaaluation Advised that is pain recurs/fevers/chills develop, that she be evaluated in an emergency room setting Family was present when I spoke with Ms. Joseph about the above plan Code(s): R74.8 - ABNORMAL LEVELS OF OTHER SERUM ENZYMES
[2016-08-22] MEDS ORDERED: LORATADINE 10 MG TABLET PO SCH (10:00)
[2016-08-22 14:24] LABS: HEP B SURFACE AB Non Reactive (.)
== END 2016-08-21 17:28 | disposition home or self-care (01) | DRG 446 ==
LOC: JER 04:24 → JERBED 11:20 → J6S 17:30
PROVIDERS: ADMIT Internal Medicine; ATTEND Internal Medicine
DX: K80.50 Calculus of bile duct without cholangitis or cholecystitis without obstruction (principal); R11.2 Nausea with vomiting, unspecified; R74.8 Abnormal levels of other serum enzymes; I10 Essential (primary) hypertension; J45.909 Unspecified asthma, uncomplicated; Z72.0 Tobacco use; M51.26 Other intervertebral disc displacement, lumbar region
CPT/HCPCS: 36415; 71010-TC; 74177-TC; 74183-TC; 76705-TC; 78226-TC; 80048; 80053; 80076; 81003; 82150; 82550; 83690; 84703; 85025; 85610; 86704; 86706; 86708; 87086; 87340; 93005; 93010; 99285-25; A9537; A9576; Q9967

== ENCOUNTER 2018-05-03 14:06 | Emergency (ER) | payer BC ==
[2018-05-03 14:12] VITALS: TEMP 97.3; BMI 30.1
[2018-05-03] MEDS ORDERED: ACETAMINOPHEN 500 MG TABLET (FP) PO ONE (14:12)
--- NOTE | 2018-05-03 14:15 | PDOC ---
Attending Attestation - Resident Resident Name: Pina Deras - HPI HPI: 05/03/18 14:51 Pt presents to the Ed complaining of a three day history of sore throat, subjective fever and non productive cough. Denies chest pain or shortness of breath. Tolerating PO liquids without difficulty. - Physicial Exam PE: 05/03/18 14:52 + tonsillar erythema and edema, with no exudates and mid line uvula. - Medical Decision Making 05/06/18 18:40 Pt presents to the ED complaining of throat pain. Tolerating PO. Check rapid strep and discharge home if negative.
[2018-05-03] MEDS ORDERED: ACETAMINOPHEN 325 MG TABLET (FP) ONE (14:25)
--- NOTE | 2018-05-03 15:03 | PDOC ---
History of Present Illness - General Chief Complaint: Cold Symptoms Stated Complaint: Flu like symptoms Time Seen by Provider: 05/03/18 14:11 - History of Present Illness Initial Comments: 32 year old female with history of asthma, and HTN presenting with fevers, chills, cough, and sore throat for the past two days. Patient states that fevers and chills have began to resolved but sore throat and cough are particularly bothersome. Denies nausea, vomiting, sputum production, chest pain , headache, neck stiffness, or other symptoms. States that she stopped her anti- htn meds because she was out of prescription refills. 05/03/18 17:55 Past History - Past Medical History Allergies/Adverse Reactions: Allergies Allergy/AdvReac Type Severity Reaction Status Date / Time famotidine [From Pepcid] Allergy Rash Verified 05/03/18 14:12 ibuprofen Allergy Verified 05/03/18 14:12 ondansetron HCl Allergy Rash Verified 05/03/18 14:12 [From Zofran (as hydrochloride)] Home Medications: Ambulatory Orders Albuterol Sulfate Inhaler - [Ventolin HFA Inhaler -] 1 - 2 inh PO QID PRN Cetirizine HCl [Zyrtec -] 10 mg PO DAILY 08/20/16 Albuterol 0.083% Nebulizer Laura [Ventolin 0.083% Nebulizer Soln -] 1 amp NEB ONCE #100 amp 05/03/18 Benzonatate [Tessalon Pearls -] 100 mg PO TID #21 capsule 05/03/18 Benzonatate [Tessalon Pearls -] 100 mg PO TID #21 capsule 05/03/18 Labetalol HCl 100 mg PO BID #60 tablet 05/03/18 Labetalol HCl [Normodyne -] 100 mg PO BID #60 tablet 05/03/18 Asthma: Yes COPD: No - Suicide/Smoking/Psychosocial Hx Smoking History: Unknown if ever smoked Have you smoked in the past 12 months: No Number of Cigarettes Smoked Daily: 10 Information on smoking cessation initiated: Yes 'Breaking Loose' booklet given: 08/20/16 Hx Alcohol Use: No Drug/Substance Use Hx: No Substance Use Type: None Review of Systems - Review of Systems Constitutional: Yes: Chills, Fever. No: Loss of Appetite HEENTM: No: Blurred Vision, Tearing Respiratory: Yes: Cough. No: Shortness of Breath, SOB with Exertion, Wheezing, Productive cough Cardiac (ROS): No: Chest Pain, Edema, Irregular Heart Rate ABD/GI: No: Diarrhea, Nausea, Vomiting : No: Burning, Dysuria, Discharge Musculoskeletal: No: Joint Pain, Joint Swelling Integumentary: No: Bruising, Erythema, Flushing Neurological: No: Headache, Numbness, Paresthesia Psychiatric: No: Anxiety, Depression Endocrine: No: Flushing, Increased Urine, Unexplained Weight Gain Hematologic/Lymphatic: No: Anemia, Blood Clots, Easy Bleeding *Physical Exam - Vital Signs Last Vital Signs Temp Pulse Resp BP Pulse Ox 97.3 F L 80 18 182/118 H 100 05/03/18 14:08 05/03/18 14:08 05/03/18 14:08 05/03/18 14:08 05/03/18 14:08 - Physical Exam General Appearance: Yes: Nourished, Appropriately Dressed. No: Apparent Distress HEENT: positive: EOMI, DAIN, Normal Voice, Pharyngeal Erythema, Tonsillar Erythema, Nasal Congestion, Sinus Tenderness. negative: Normal ENT Inspection, Tonsillar Exudate, Rhinorrhea Neck: positive: Trachea midline, Normal Thyroid, Supple. negative: Tender, Rigid Respiratory/Chest: positive: Lungs Clear, Normal Breath Sounds. negative: Chest Tender, Respiratory Distress, Accessory Muscle Use Cardiovascular: positive: Regular Rhythm, Regular Rate Gastrointestinal/Abdominal: positive: Normal Bowel Sounds, Flat, Soft. negative : Tender Lymphatic: positive: Adenopathy (anterior cervical lymphadenopathy). negative: Tenderness Musculoskeletal: positive: Normal Inspection. negative: CVA Tenderness, Decreased Range of Motion Extremity: positive: Normal Capillary Refill, Normal Inspection, Normal Range of Motion. 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 NML intact, Fully Oriented, Alert, Normal Mood/ Affect, Normal Response, Motor Strength 5/5 Moderate Sedation - Procedure Monitoring Vital Signs: Procedure Monitoring Vital Signs Temperature 97.3 F L 05/03/18 14:08 Pulse Rate 80 05/03/18 14:08 Respiratory Rate 18 05/03/18 14:08 Blood Pressure 182/118 H 05/03/18 14:08 O2 Sat by Pulse Oximetry (%) 100 05/03/18 14:08 ED Treatment Course - Medications Given in the ED: ED Medications Discontinued Medications Generic Name Dose Route Start Last Admin Trade Name Mike PRN Reason Stop Dose Admin Acetaminophen 975 mg 05/03/18 14:12 05/03/18 14:31 Tylenol - PO 05/03/18 14:13 975 mg ONCE ONE Administration Medical Decision Making - Medical Decision Making 32 year old female with asthma and HTN presenting with flu like symptoms that appear to be resolving except for a sore throat. No signs of asthma exacerbation and patient well appearing. Patient strep and flu negative. We refilled her labetalol and prescribed tesalon dain for the cough/ sore throat. Patient DC'd with return precautions and follow up instructions. 05/03/18 18:03 *DC/Admit/Observation/Transfer Diagnosis at time of Disposition: Sore throat - Discharge Dispostion Disposition: HOME Condition at time of disposition: Improved Decision to Admit order: No - Prescriptions Prescriptions: Albuterol 0.083% Nebulizer Laura [Ventolin 0.083% Nebulizer Soln -] 1 amp NEB ONCE #100 amp Benzonatate [Tessalon Pearls -] 100 mg PO TID #21 capsule Benzonatate [Tessalon Pearls -] 100 mg PO TID #21 capsule Labetalol HCl [Normodyne -] 100 mg PO BID #60 tablet Labetalol HCl 100 mg PO BID #60 tablet - Referrals Referrals: Kraig Dowd [Primary Care Provider] - - Patient Instructions Printed Discharge Instructions: DI for Viral Upper Respiratory Infection-Child Additional Instructions: Please take Tylenol and ibuprofen for your pain. Please use your BP medications as directed. Please follwo up with your primary care doctor. If you do not have one, you may use our clinic. - Post Discharge Activity Forms/Work/School Notes: Back to Work
[2018-05-03] MEDS ORDERED: predniSONE 20 MG TABLET (UD) PO ONE (15:16)
[2018-05-03] MEDS ORDERED: predniSONE 20 MG TABLET (UD) ONE (15:20)
[2018-05-03 18:32] VITALS: BP 178/100; PULSE 78
== END 2018-05-03 15:27 | disposition home or self-care (01) ==
LOC: FER 14:06
DX: J02.9 Acute pharyngitis, unspecified (principal); I10 Essential (primary) hypertension; J45.909 Unspecified asthma, uncomplicated
CPT/HCPCS: 87070; 87804; 99282-25

== ENCOUNTER 2020-11-13 07:38 | Emergency (ER) | payer OTHER ==
[2020-11-13] MEDS ORDERED: methylPREDNISolone NA SUCC 125 MG/2 ML VIAL ONE ×2 (07:45→07:50)
[2020-11-13] MEDS ORDERED: EPINEPHrine/PF 1 MG/1 ML (1:1,000) AMPULE ONE (07:50)
[2020-11-13] MEDS ORDERED: SODIUM CHLORIDE 0.9% 500 ML INFUS.BAG IV ONE (07:50)
[2020-11-13] MEDS ORDERED: EPINEPHrine 1:1,000 0.3 MG/0.3 ML SYR IM ONE (07:50)
[2020-11-13] MEDS ORDERED: methylPREDNISolone NA SUCC 125 MG/2 ML VIAL IVPB ONE (07:51)
[2020-11-13] MEDS ORDERED: ALBUTEROL SO4 2.5/IPRATROPIUM 0.5 INH SOL 3 ML VIAL.NEB. NEB ONE ×2 (07:57→08:09)
[2020-11-13 07:58] VITALS: BMI 24.1
[2020-11-13 08:34] LABS: BASO % 0.4 % (0-2.0); EOS % 1.9 % (0-4.5); HEMATOCRIT 39.2 % (32.4-45.2); HEMOGLOBIN 13.2 GM/dL (10.7-15.3); LYMPH % 49.8 % (8-40); MCH 30.7 pg (25.7-33.7); MCHC 33.6 g/dl (32.0-36.0); MEAN CELL VOLUME 91.4 fl (80-96); MEAN PLT VOLUME 8.1 fl (7.5-11.1); MONO % 6.1 % (3.8-10.2); NEUT % 41.8 % (42.8-82.8); PLATELET COUNT 263 10^3/uL (134-434); RBC 4.29 M/mm3 (3.60-5.2); RDW 13.8 % (11.6-15.6); WHITE BLOOD COUNT 7.6 K/mm3 (4.0-10.0)
[2020-11-13 08:58] LABS: BLOOD UREA NITROGEN 17.7 mg/dL (7-18); CALCIUM 9.3 mg/dL (8.5-10.1)
[2020-11-13 09:02] LABS: CREATININE 0.8 mg/dL (0.55-1.3)
[2020-11-13 09:03] LABS: BILIRUBIN,TOTAL 0.4 mg/dL (0.2-1); TOT PROT 8.4 g/dl (6.4-8.2)
[2020-11-13 12:38] VITALS: BP 157/97; PULSE 86; TEMP 98.2
== END 2020-11-13 12:40 | disposition home or self-care (01) ==
LOC: JER 07:38
PROC: 3E0F7GC Introduction of Other Therapeutic Substance into Respiratory Tract, Via Natural or Artificial Opening (ICD-10-PCS; principal; 2020-11-13)
PROC: 3E033GC Introduction of Other Therapeutic Substance into Peripheral Vein, Percutaneous Approach (ICD-10-PCS; 2020-11-13)
PROC: 3E023GC Introduction of Other Therapeutic Substance into Muscle, Percutaneous Approach (ICD-10-PCS; 2020-11-13)
PROC: 3E033GC Introduction of Other Therapeutic Substance into Peripheral Vein, Percutaneous Approach (ICD-10-PCS; 2020-11-13)
DX: T80.52XA Anaphylactic reaction due to vaccination, initial encounter (principal); R06.02 Shortness of breath; L29.9 Pruritus, unspecified
CPT/HCPCS: 36415; 71045-TC-FY; 80053; 84703; 85025; 99284-25

== ENCOUNTER 2021-12-18 12:53 | Emergency (ER) | payer OTHER ==
[2021-12-18 13:12] VITALS: BP 143/94; PULSE 89; TEMP 98.2; BMI 31.8
== END 2021-12-18 16:40 | disposition home or self-care (01) ==
LOC: JERFT 12:53
DX: S83.412A Sprain of medial collateral ligament of left knee, initial encounter (principal); S93.402A Sprain of unspecified ligament of left ankle, initial encounter; X50.9XXA Other and unspecified overexertion or strenuous movements or postures, initial encounter
CPT/HCPCS: 73562-TC-LT-FY; 73610-TC-LT-FY; 73630-TC-LT; 99284-25